=== PATIENT | male | born 1980 | race Two or more races ===

== ENCOUNTER → 2024-06-23 | Outpatient (BNVA) | payer MEDICAID, SELFPAY | END | disposition home or self-care (01) | PROVIDERS: PCP Nurse Practitioner Family; Referring Provider Nurse Practitioner Family; Visit Provider Nurse Practitioner Family | DX: Z71.2 Person consulting for explanation of examination or test findings (principal); E87.5 Hyperkalemia; E11.9 Type 2 diabetes mellitus without complications; I10 Essential (primary) hypertension; E78.5 Hyperlipidemia, unspecified; K76.0 Fatty (change of) liver, not elsewhere classified | CPT/HCPCS: 99212; G0463 ==

== ENCOUNTER → 2024-07-07 | Outpatient (BNVA) | payer MEDICAID, SELFPAY | END | disposition home or self-care (01) | PROVIDERS: PCP Nurse Practitioner Family; Referring Provider Nurse Practitioner Family; Visit Provider Nurse Practitioner Family | DX: I10 Essential (primary) hypertension (principal); E87.5 Hyperkalemia; Z12.5 Encounter for screening for malignant neoplasm of prostate | CPT/HCPCS: 99213 ==

== ENCOUNTER → 2024-07-12 | Outpatient (BNVA) | payer MEDICAID, SELFPAY | END | disposition home or self-care (01) | PROVIDERS: PCP Nurse Practitioner Primary Care; Referring Provider Nurse Practitioner Primary Care; Visit Provider Nurse Practitioner Primary Care | DX: Z71.2 Person consulting for explanation of examination or test findings (principal) | CPT/HCPCS: 99212; G0463 ==

== ENCOUNTER → 2024-10-05 | Outpatient (BNVA) | payer MEDICAID, SELFPAY | END | disposition home or self-care (01) | PROVIDERS: PCP Nurse Practitioner Family; Referring Provider Nurse Practitioner Family; Visit Provider Nurse Practitioner Family | DX: Z71.2 Person consulting for explanation of examination or test findings (principal); E11.9 Type 2 diabetes mellitus without complications; I10 Essential (primary) hypertension; E78.5 Hyperlipidemia, unspecified | CPT/HCPCS: 99212; G0463 ==

== ENCOUNTER → 2024-12-10 | Outpatient (BNVA) | payer MEDICAID, SELFPAY | END | disposition home or self-care (01) | PROVIDERS: PCP Nurse Practitioner Family; Referring Provider Nurse Practitioner Family; Visit Provider Nurse Practitioner Family | DX: E78.5 Hyperlipidemia, unspecified (principal); E11.9 Type 2 diabetes mellitus without complications | CPT/HCPCS: 99212; G0463 ==

== ENCOUNTER → 2025-01-06 | Outpatient (BNVA) | payer MEDICAID, SELFPAY | END | disposition home or self-care (01) | PROVIDERS: PCP Nurse Practitioner Family; Referring Provider Nurse Practitioner Family; Visit Provider Nurse Practitioner Family | DX: I10 Essential (primary) hypertension (principal) | CPT/HCPCS: 99213 ==

== ENCOUNTER → 2025-01-24 | Outpatient (BNVA) | payer MEDICAID, SELFPAY | END | disposition home or self-care (01) | PROVIDERS: PCP Nurse Practitioner Family; Referring Provider Nurse Practitioner Family; Visit Provider Nurse Practitioner Family | DX: Z00.01 Encounter for general adult medical examination with abnormal findings (principal); E11.9 Type 2 diabetes mellitus without complications; E66.9 Obesity, unspecified; Z68.37 Body mass index [BMI] 37.0-37.9, adult; I10 Essential (primary) hypertension; Z28.21 Immunization not carried out because of patient refusal; Z12.5 Encounter for screening for malignant neoplasm of prostate; Z23 Encounter for immunization | CPT/HCPCS: 82948; 90471; 90677; 99173; 99215; G0009 ==

== ENCOUNTER → 2025-04-07 | Outpatient (BNVA) | payer MEDICAID, SELFPAY | END | disposition home or self-care (01) | PROVIDERS: PCP Nurse Practitioner Family; Referring Provider Nurse Practitioner Family; Visit Provider Nurse Practitioner Family | DX: Z00.00 Encounter for general adult medical examination without abnormal findings (principal) ==

== ENCOUNTER → 2025-04-15 | Outpatient (BNVA) | payer MEDICAID, SELFPAY | END | disposition home or self-care (01) | PROVIDERS: PCP Nurse Practitioner Family; Referring Provider Nurse Practitioner Family; Visit Provider Nurse Practitioner Family | DX: Z71.2 Person consulting for explanation of examination or test findings (principal); R94.5 Abnormal results of liver function studies; E78.5 Hyperlipidemia, unspecified; E11.9 Type 2 diabetes mellitus without complications; E55.9 Vitamin D deficiency, unspecified; I10 Essential (primary) hypertension | CPT/HCPCS: 99212; G0463 ==